=== PATIENT | female | born 2005 | race Two or more races ===

== ENCOUNTER 2025-02-20 01:44 | Emergency (ER) | payer MEDICAID, SELFPAY ==
[2025-02-20 01:45] VITALS: BMI 33.2
[2025-02-20 01:50] VITALS: BP 127/89; PULSE 84; RESP 19; TEMP 36.9; O2SAT 100
--- NOTE | 2025-02-20 02:08 | PD.EDHA ---
ED Headache RME/HPI General Chief Complaint: Headache Stated Complaint: HEADACHE X3 DAYS Time Seen by Provider: 02/20/25 02:00 Arrival date/time: 02/20/25 01:44 This is a case of 19-year-old female with recurrent headache seen by neurologist and had CT scan in the past which is normal patient also have recurrent ear infection came here in the emergency room due to frontal headache and bilateral ear pain no other symptoms noted denies any numbness weakness tingling sensation denies any blurring of vision denies tinnitus denies dizziness denies any injury or trauma Limitations: no limitations Related Data Previous Rx's ?Medication ?Instructions ?Recorded amoxicillin 875 mg-potassium 1 tab PO BID #20 tabs 02/20/25 clavulanate 125 mg tablet ibuprofen 800 mg tablet 800 mg PO Q8H PRN pain #20 tabs 02/20/25 ofloxacin 0.3 % ear drops 5 drp otic (ear) BID 7 days #10 mL 02/20/25 ondansetron 4 mg disintegrating 4 mg PO Q6H PRN nausea and 02/20/25 tablet vomiting #10 tabs Allergies Allergy/AdvReac Type Severity Reaction Status Date / Time No Known Allergies Allergy Verified 02/20/25 01:45 Review of Systems Review of Systems Systems Reviewed: All systems reviewed, normal except as documented Constitutional Constitutional: Reports system reviewed and no additional complaints, except as documented and Reports as per HPI Eyes Eyes: Reports system reviewed and no additional complaints, except as documented and Reports as per HPI ENT Ears, Nose, Mouth, and Throat: Reports system reviewed and no additional complaints, except as documented and Reports as per HPI Cardiovascular Cardiovascular: Reports system reviewed and no additional complaints, except as documented and Reports as per HPI Respiratory Respiratory: Reports system reviewed and no additional complaints, except as documented and Reports as per HPI Gastrointestinal Gastrointestinal: Reports system reviewed and no additional complaints, except as documented and Reports as per HPI Musculoskeletal Musculoskeletal: Reports system reviewed and no additional complaints, except as documented and Reports as per HPI Neurologic Neurologic: Reports system reviewed and no additional complaints, except as documented and Reports as per HPI Past Medical History Past Medical History CARDIAC: Negative Congestive Heart Failure RESPIRATORY: Negative Chronic Obstructive Pulmonary Disease (COPD) GENITOURINARY: Negative Renal Disease ENDOCRINE: Negative Diabetes Mellitus Type 1 or Diabetes Mellitus Type 2 Social History SMOKING STATUS: Never smoker ED Exam General Limitations: Present no limitations General appearance: Present alert, in no apparent distress and other (Patient is awake alert oriented not in distress nontoxic looking well-hydrated well-nourished) Head Head exam: Present atraumatic, normocephalic and normal inspection Eye Eye exam: Present normal appearance, PERRL, EOMI and other (PERRL EOM intact normal conjunctiva no papilledema) ENT ENT exam: Present normal exam, normal oropharynx, mucous membranes moist and other (Nose throat exam were normal bilateral ear canal noted redness mild tenderness yellowish discharge no foreign body no impacted cerumen TM both retracted bulging red not perforated) Neck Neck exam: Present normal inspection, full ROM, trachea midline and other (Negative for meningeal sign); Absent tenderness, meningismus, lymphadenopathy or thyromegaly Chest Chest inspection: Present normal inspection and symmetric chest wall rise; Absent tenderness Respiratory Respiratory exam: Present normal lung sounds bilaterally; Absent respiratory distress, wheezes, stridor, accessory muscle use or prolonged expiratory phase Cardiovascular Cardiovascular exam: Present regular rate, normal rhythm and normal heart sounds; Absent bradycardia, tachycardia, irregular rhythm, systolic murmur or diastolic murmur Abdominal Exam Abdominal exam: Present soft and normal bowel sounds; Absent distention, tenderness, guarding, rebound, rigidity, diminished bowel sounds, hyperactive bowel sounds, hypoactive bowel sounds or organomegaly Extremities Exam Extremities exam: Present normal inspection and full ROM Back Exam Back exam: Present normal inspection and full ROM Neurological Exam Neurological exam: Present alert, oriented X3, CN II-XII intact, normal gait, reflexes normal and other (Awake alert oriented x 4 no focal deficit GCS 15/15 steady gait memory intact no slurring's speech no facial droop motor or sensory reflex were normal in all extremities CN II to XII is normal steady gait); Absent motor sensory deficit Psychiatric Psychiatric exam: Present normal affect and normal mood Skin Skin exam: Present warm, dry, intact, normal color and other (Swelling skin turgor) Course Quality Measures none Orders Category Date Time Status Amoxicillin/Pot Clav 875 [Augmentin 875] Med 02/20/25 02:01 Discontinued 1 tab PO X1 ONE DiphenhydrAMINE INJ [Benadryl Inj] Med 02/20/25 02:01 Discontinued 25 mg IVP X1 ONE Ketorolac Inj [Toradol Inj] Med 02/20/25 02:01 Pending 30 mg IVP X1 ONE Ondansetron Inj [Zofran Inj] Med 02/20/25 02:01 Discontinued 4 mg IVP X1 ONE Sodium Chloride 0.9% 1000 ml [Ns] 1,000 ml Med 02/20/25 02:01 Active IV 999 mls/hr Vital Signs Vital signs: Vital Signs Temperature 98.5 F 02/20/25 01:50 Pulse Rate 84 02/20/25 01:50 Respiratory Rate 19 02/20/25 01:50 Blood Pressure 127/89 H 02/20/25 01:50 Pulse Oximetry (%) 100 02/20/25 01:50 Oxygen Delivery Method Room Air 02/20/25 01:50 Oxygen saturation is 100% on room air normal Headache MDM Narrative MDM Narrative:: This is a case of 19-year-old female with recurrent headache seen by neurologist and had CT scan in the past which is normal patient also have recurrent ear infection came here in the emergency room due to frontal headache and bilateral ear pain no other symptoms noted denies any numbness weakness tingling sensation denies any blurring of vision denies tinnitus denies dizziness denies any injury or trauma physical examination patient is awake alert oriented not in distress nontoxic looking PERRLA EOM intact normal conjunctiva no palpable edema negative for meningeal pain bilateral ear canal noted red discharge tender tympanic membrane red bulging retracted but not perforated neurological exam is normal awake alert oriented x 4 no focal deficit GCS 15 of 15 steady gait the rest of the physical examination and neurological exam is normal and unremarkable based on my physical examination and history patient headache is possible ear infection patient was given a bolus of normal saline Toradol Zofran and Benadryl which improved resolve the pain patient was also given Augmentin for ear infection patient will follow-up with PCP in 2 days for reevaluation and for any worsening symptoms or any emergent concern return precaution in the ER was advised Patient was discharged with comfortable condition walking with stable gait. Patient verbalized no further complains explained diagnosis and answered patient question. Patient is comfortable with the proposed management plan including the need to follow up with his/her primary care physician and any specialist if applicable Discussed patient for any urgent condition or worsening sx, He/She needed to go to emergency room immediately or call 911. Patient acknowledge the responsibility to follow up as instructed and to monitor her/his symptoms. For any persistence of the symptoms for more than 3-5 days return precaution advised. Discussed the result of the test and was given printed discharge instruction Patient data External records reviewed:: [facility] previous records Clinical information provided by:: patient Social determinants that could affect healthcare access:: none Patient has the following chronic illnesses:: None How is presenting disease/condition affected by chronic disease/condition?: no chronic disease Evaluation data The following diagnostics were reviewed and interpreted by me:: other (specify) (None) Lab and/or radiology exams considered but not ordered:: None Interpretation Summary: None Medications / Prescriptions Medications or Prescriptions considered but not ordered:: Given Medication administrations:: Medication Administration History Sodium Chloride (Ns) 1,000 mls @ 999 mls/hr IV .Q1H1M ONE Stop: 02/20/25 03:01 Ketorolac Tromethamine (Ketorolac Inj 30 Mg/Ml Vial) 30 mg IVP X1 ONE Stop: 02/20/25 02:02 Discontinued Medications Amoxicillin/Clavulanate Potassium (Amoxicillin/Pot Clav 875 Tablet) 1 tab PO X1 ONE Stop: 02/20/25 02:02 Diphenhydramine HCl (Diphenhydramine Inj 50 Mg/Ml Vial) 25 mg IVP X1 ONE Stop: 02/20/25 02:02 Ondansetron HCl (Ondansetron Inj 2 Mg/Ml Inj 2 Ml) 4 mg IVP X1 ONE; Protocol Stop: 02/20/25 02:02 Given Consultations Consultation(s) initiated? (list below): No Diagnosis Differential diagnosis headache: migraine, tension headache and sinusitis Most likely diagnosis given after review of the tests above:: Headache Admission Indicated Admission indicated?: not indicated Explain why admission is indicated or not indicated:: Not indicated Admission Request Was there a request for admission?: No Admission Attestation Admission request attestation: Not indicated Disposition Plan Disposition Plan: Discharge Discharge Attestation Discharge Attestation: The patient and all family members were given an opportunity to ask questions and understood the discharge instructions. Discharge instructions specifically effects, indications for sooner follow up or return to the emergency department, and the expected course of current diagnosis. Patient condition: Stable Discharge Plan Plan Patient Disposition: HOME (Self Care) Patient condition on transfer: Stable Prescriptions/Referrals Prescriptions/Med Rec: New amoxicillin-pot clavulanate 875-125 mg tablet 1 tab PO BID Qty: 20 0RF ibuprofen 800 mg tablet 800 mg PO Q8H PRN (Reason: pain) Qty: 20 0RF ofloxacin 0.3 % drops 5 drp otic (ear) BID 7 Days Qty: 10 0RF ondansetron 4 mg tablet,disintegrating 4 mg PO Q6H PRN (Reason: nausea and vomiting) Qty: 10 0RF Problem List Clinical Impression: Headache, Otitis media Patient/Caregiver Discharge Instructions Education Materials: Self-Care for Headaches, ED Otitis Media Antibiotic ... Additional Instructions: Follow-up with your primary care physician in 2 days for reevaluation and to be referred to neurologist for further evaluation and treatment of your recurrent headache and ENT specialist for recurrent otitis media for any recurrence persistent worsening symptoms or any emergent concern call 911 or go to the nearest emergency room take your medication as directed finish the course of antibiotic increase water intake keep hydrated Pedialyte Gatorade for hydration no Q-tips no cotton balls prevent water into enter both ears is advised Print Language: Italian Stand Alone Forms: Inge Award Info., Patient Portal Info Letter 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 Menjivar
[2025-02-20] MEDS: ONDANSETRON INJ 2 MG/ML INJ 2 ML 4 MG IVP (03:03)
[2025-02-20] MEDS: SODIUM CHLORIDE 0.9% 1000 ML 1,000 ML 999 ML IV (03:03)
[2025-02-20] MEDS: AMOXICILLIN/POT CLAV 875 TABLET 1 TAB PO (03:05)
[2025-02-20 03:46] VITALS: BP 130/88; PULSE 80; RESP 16; TEMP 36.7; O2SAT 98
== END 2025-02-20 03:49 | disposition home or self-care (01) ==
LOC: SERX 02:07
PROVIDERS: Emergency Provider Emergency Medicine; PCP Nurse Practitioner Family
DX: H66.93 Otitis media, unspecified, bilateral (principal)
CPT/HCPCS: 99283; J1200; J2405; J7030; A9270